=== PATIENT | female | born 1975 | race Two or more races ===

== ENCOUNTER → 2023-08-20 | Outpatient (CLI) | payer BC, SELFPAY ==
--- NOTE | 2023-08-20 09:33 | US_ITS ---
STUDY: ULTRASOUND TRANSVAGINAL CLINICAL: Female, 47 years old. excessive vaginal bleeding TECHNIQUE: Transvaginal COMPARISON: None. FINDINGS: Normal uterine size measuring 9.5 x 4.9 x 4.7 cm in maximal craniocaudal dimension. There are no myometrial masses. Normal endometrial thickness measuring 8 mm. There are no endometrial masses, and there is no fluid in the endometrial cavity. Nabothian cysts of the cervix. Enlarged right ovary, measuring 8.4 x 6.9 x 5.2 cm. The uterus is heterogeneous echotexture with areas of increased echogenicity possibly consistent with a dermoid. Correlation with CT would be useful.. Normal left ovary, measuring 2.6 x 1.9 x 1.3 cm. There are multiple follicles without a dominant cyst. There is no free fluid in the pelvis. Polycystic ovary disease: No. Possible cystic and solid mass in the cul-de-sac and again correlation with CT would be useful. US/Transvaginal Non- IMPRESSION: Suspect right ovarian mass and possible mass in the cul-de-sac. Correlation with CT with oral and intravenous contrast is recommended. Electronically Signed: Jamar Walsh MD at 0:16 EDT ,
== END | disposition home or self-care (01) ==
PROVIDERS: PCP Family Medicine; Referring Provider Registered Nurse; Visit Provider Registered Nurse
DX: N92.0 Excessive and frequent menstruation with regular cycle (principal)
CPT/HCPCS: 76830

== ENCOUNTER → 2023-09-08 | Outpatient (CLI) | payer BC, SELFPAY ==
--- NOTE | 2023-09-04 09:00 | EMB_PTH ---
PATIENT: FREDERICK LEE LOC: [place] U#:[id number] AGE/SX: 47/F ROOM: RE09/08/[address]: Dr. Debra Jacques DO : 1975 BED: DIS: 09/08/2023 SPEC #: [id number] RECD: 09/04/23 16:38 STATUS: GORAN KAIS[facility] #: [id number] ALIS: 09/04/23 09:[address]: Debra Jacques DEPT: SURGICAL PATHOLOGY RECD BY: Connie Avila ENTERED: 09/08/23 09:29 SP TYPE: ENDOM BX/C JEN DR: Dr. Iam Javier MD Tissues: Endometrium, NOS Procedures: Surgery Specimen Level IV HEADER OPERATION: Endometrial biopsy PRE-OP DIAGNOSIS: Menorrhagia TISSUE SUBMITTED: Endometrial lining MICROSCOPIC DIAGNOSIS Endometrium, biopsy: Weakly proliferative inactive endometrium with focal cystic change. Strips of non-superficial endocervix. AM/mr 09/09/2023 MICROSCOPIC DESCRIPTION Slides are reviewed. GROSS DESCRIPTION Received is one container labeled with the patient's name and not further designated. The specimen consists of multiple minute fragments of guerrero tissue measuring in aggregate 0.5 x 0.5 x <0.1cm. The specimen is submitted in its entirety in one cassette. / 09/08/2023 TC:5 CPT:48089
== END | disposition home or self-care (01) ==
LOC: LABSPEC 08:39
PROVIDERS: PCP Family Medicine; Visit Provider Obstetrics & Gynecology
DX: N92.0 Excessive and frequent menstruation with regular cycle (principal)
CPT/HCPCS: 88305

== ENCOUNTER 2023-09-22 11:58 | Day surgery (SDC) | payer BC, SELFPAY ==
[2023-09-17 15:31] LABS: Hematocrit 47.4 % (37-47); Hemoglobin 15.7 g/dL (12.0-15.0); Mean Corp Hgb Conc 33.1 g/dL (32-36); Mean Corpuscular Hgb 32.2 pg (27.0-32.0); Mean Corpuscular Volume 97.3 fL (81-99); Mean Platelet Vol. 10.6 fl (6.2-12.0); Platelet Count 299 K/mm3 (150-450); RBC Distribution Width CV 11.9 % (11.6-14.6); RBC Distribution Width SD 43.1 fl (35.1-43.9); Red Blood Count 4.87 M/mm3 (4.2-5.4)
[2023-09-17 16:17] LABS: Anion Gap 8 (5-15); BUN 17 mg/dL (7-18); BUN/Creat Ratio 14.9 RATIO (10-20); Chloride 105 mmol/L (98-107); Creatinine, Serum 1.14 mg/dL (0.55-1.02); EST Glomerular Filtration Rate 55 mL/min (>60); Est Glom Filt Rate - Afr Amer 66 mL/min (>60); Glucose 106 mg/dL (74-106); Potassium 3.3 mmol/L (3.5-5.1); Sodium Level 139 mmol/L (136-145)
[2023-09-22] VITALS (8 sets, daily range): BP systolic 111–150; BP diastolic 68–97; PULSE 75–100; RESP 16–20; TEMP 35.9–37; O2SAT 97–99; BMI 26.7
--- NOTE | 2023-09-22 12:44 | DCINST_ITS ---
Discharge Instructions Diet Discharge Diet: No restrictions Activity Discharge Activity: Return to Normal Activity, May Not Drive (for two weeks or while taking narcotic pain medications.), May Shower and May Take a Tub Bath (in 7 days) May resume sexual activity in: 1 week Weight Bearing Status: Full weight bearing Dressing / Incision Call your doctor if you observe: Using more than 1 pad per hour, Shortness of breath, Chest pain and Uncontrolled pain Suture Line Care: Avoid Pulling/Pushing and Avoid Pinching/Bending Remove Dressing in: 1 week (if present) Cleanse incision/area with: Soap & Water and Keep Dressing Clean & Dry Follow Up Care Please Follow Up With: Debra Jacques DO When: Call to make an appointment with your doctor for a follow up incision check in 1-2 weeks. Test Results: Test results from this visit will be discussed in further detail at your follow- up appointment, if applicable. Discharge Plan Admission Primary Reason for Your Visit: laparoscopy, dilation and curettage, uterine ablation, removal of ovary Attending Provider: Debra Jacques Primary Care Provider: Iam Javier Instructions Print Language: Eritrean Discharge Orders/Prescriptions Prescriptions: New ibuprofen 800 mg tablet 800 mg PO Q8H PRN (Reason: pain) Qty: 30 0RF oxycodone-acetaminophen [Percocet] 5-325 mg tablet 1 tab PO Q4H PRN (Reason: pain) 7 Days Qty: 15 0RF Rx Instructions: 1-2 tabs q 4 hrs as needed for pain Continued atorvastatin 40 mg tablet 80 mg PO QHS pantoprazole [Protonix] 40 mg tablet,delayed release (DR/EC) 40 mg PO DAILY Aurovela 24 Fe 1 mg-20 mcg (24)/75 mg (4) tablet 1 tab PO DAILY hydrochlorothiazide 12.5 mg tablet 12.5 mg PO DAILY Referrals / Follow Up: Iam Javier MD [Primary Care Provider] - Disposition Disposition (needs filled in before D/C Order can be placed): Home, Self Care
--- NOTE | 2023-09-22 12:44 | PCM.HP.BLA ---
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 Required: No Is patient in pain?: No Allergies clarithromycin (From Biaxin) Allergy (Unknown, Verified 09/04/23 08:20) Rash Medications ?Medication ?Instructions ?Recorded ?Confirmed ?Type atorvastatin 40 mg tablet 40 mg PO DAILY 10/02/20 09/04/23 History bupropion HCl 150 mg 24 hr tablet, 150 mg PO QAM 09/04/23 09/04/23 History extended release norethindrone 1 mg-ethinyl 1 tab PO DAILY 09/04/23 09/04/23 History estradiol 20 mcg (24)-iron 75 mg (4) tablet (Aurovela 24 Fe) pantoprazole 40 mg tablet,delayed 40 mg PO DAILY 09/04/23 09/04/23 History release (Protonix) Post menopausal: No Patient : No : No [facility] Medical History (Updated 09/04/23 @ 09:[address] 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 The scan was done initially due to heavy periods associated with golf ball size blood clots. She seems to respond well to ocps however has been trying to go off ocps, which is a good idea due to her hypertension. She admits to pain with intercourse and some pelvic pain radiating down her legs. The uterus measured 9 cm and overall normal. ROS Const ROS Unobtainable: All systems reviewed & are unremarkable except as noted in H Resp Resp: Reports system reviewed and no additional complaints, except as documented; Denies cough GI GI: Reports as per HPI Psych Psych: Reports system reviewed and no additional complaints, except as documented Exam Const General: cooperative, healthy appearing, comfortable and no acute distress Resp Effort & Inspection: normal respiratory effort General: bimanual renal exam normal bilaterally External Female Exam: normal appearance of the urethra Urethra: normal appearance of the urethra Speculum Exam - Vagina: normal appearance of the vagina Speculum Exam - Cervix: normal appearance of the cervix Bimanual Exam- Adnexa, other: normal Pelvic Support: normal Skin General: no rashes or lesions noted Psych Appearance: grossly normal Speech and Movement: speech and movement normal Office Procedures Endometrial Biopsy Endometrial Biopsy Test: Yes declined Consent Signed: Yes Time out checklist: patient tenaculum used: No dilator used: No Details: Cervix prepped with betadine and pipelle inserted into uterus without complication. Specimen obtained and sent to lab for analysis. All instruments removed from vagina without complications. Excellent hemostasis noted. Coding Level of Care Code Off vis,est,level 5 Diagnoses Dermoid cyst of both ovaries D27.0; D27.1 Heavy menstrual period N92.0 CPT Codes Endometrial Biopsy (28713) Assessment and Plan Assessment and Plan (1) Dermoid cyst of both ovaries: Status: Acute (2) Heavy menstrual period: Status: Acute Comment: will obtain TVUS. if negative, desires to obtain IUD for continued management. Orders: Orders Endometrial Biopsy Today N92.0 - Excessive and frequent menstruation with regular cycle Plan After discussing the patient's diagnosis and treatment plan options, patient wishes to proceed with surgical management. I have discussed with the patient the risks, benefits, and alternatives of the procedure which include but are not limited to risks of anesthesia, bleeding, infection, possible damage to bowel, bladder, or surrounding vasculature which could lead to additional surgery to evaluate any complications. Patient agrees to procedure and wishes to proceed. ACOG/uptodate references given for additional information regarding procedure. The plan is to proceed with a hysteroscopy dilation and curettage, dipti ablation, laparoscopic BS and RSO.
[2023-09-22 12:51] LABS: Internal QC Validated? YES +Cl - CLEAR BKGD; Pregnancy, Urine Negative Negative
[2023-09-22] MEDS: Lactated Ringers 1,000 ML 15 ML IV (13:09)
[2023-09-22] MEDS: Bupivacaine 0.25% 30 ML Vial (13:41)
--- NOTE | 2023-09-22 13:45 | OV_PTH ---
PATIENT: FREDERICK [place]EE [place] [facility] [id number] AGE/SX: 47/F ROOM: RE09/22/[address]: Dr. Debra Jacques DO : 1975 BED: DIS: 09/22/2023 SPEC #: [id number] RECD: 09/22/23 17:28 STATUS: GORAN KAISER #: [id number] ALIS: 09/22/23 13:[address]: Debra Jacques DEPT: SURGICAL PATHOLOGY RECD BY: Connie Avila ENTERED: 09/23/23 07:52 SP TYPE: OVARY OTHR DR: Dr. Iam Javier MD Tissues: A - Right ovary B - Fallopian tube C - Endometrium, NOS Procedures: Surgery Specimen Level II Surgery Specimen Level IV HEADER OPERATION: Hysteroscopy, D&C, Sylvia, laparoscopic bilateral salpingectomy PRE-OP DIAGNOSIS: Dermoid cyst, heavy menstrual period TISSUE SUBMITTED: A- Right ovary and cyst, B- Bilateral tubes, C- Endometrial curettings MICROSCOPIC DIAGNOSIS A. Right ovary and cyst, oophorectomy: Mature cystic teratoma (dermoid cyst). Benign follicular cysts of ovary. B. Right and left fallopian tubes, bilateral salpingectomies: Complete cross-sections of fallopian tubes with benign paratubal cysts. C. Endometrium, curettings: Weakly proliferative endometrium. Benign stromal hyperplasia consistent with exogenous hormonal effect. AM/ 09/24/2023 COMMENT Case has been reviewed in consultation with Dr. Whipple who concurs with the above diagnosis. IDC:[id number] MICROSCOPIC DESCRIPTION Slides are reviewed. GROSS DESCRIPTION A. Received in fixative is one container labeled with the patient's name and designated Right ovary and cyst. The specimen consists of a glistening light guerrero cystic ovary measuring 8.5 x 6.5 x 2.2cm. The external surface is inked and the specimen is serially sectioned to reveal the cystic ovary to contain abundant hair and applesauce like material. The cyst wall ranges in thickness from 0.1 to 0.5cm. No papillary projections or experiences are identified. Focally firm indurated tissue resembling bone and/or calcification is identified. Commissions Analyst sections are submitted in six cassettes after decalcification. B. Received in fixative is one container labeled with the patient's name and designated bilateral fallopian tubes. The specimen consists of two fallopian tubes. One fallopian tube measures in an average length of 4.5 cm and has an average diameter of 0.6 cm. A fimbrial end is identified. The second fallopian tube measures 4.5cm in length and has a diameter of 0.7cm. This fallopian tube contains a cyst near the fimbrial end measuring 0.5cm in greatest dimension and containing clear fluid. No mass lesions are identified. Commissions Analyst sections are submitted in two cassettes as follows: 1 - fallopian tube without cyst, 2 - fallopian tube with cyst. C. Received in fixative is one container labeled with the patient's name and designated Endometrial curettings. The specimen consists of multiple irregular fragments of red-guerrero soft tissue measuring in aggregate 2.5 x 2.0 x 0.2cm. The specimen is totally submitted in one cassette. AM: 09/23/2023 TC:1 CPT: 02889,36264h7, 37235
--- NOTE | 2023-09-22 14:24 | OP.PCM_ITS ---
Problems Associated Problem List Diagnoses (1) Dermoid cyst of right ovary: (2) Heavy menstrual period: Report of Operation Date of Procedure: 08/16/21 Pre-Operative Diagnosis: Right dermoid cyst, menorrhagia, desires permanent sterilization Post-Operative Diagnosis: Right dermoid cyst, menorrhagia, desires permanent sterilization Surgery/Procedure Performed:: laparoscopic bilateral salpingectomy, right oophorectomy, dipti ablation Surgeon: Derba Jacques procurement technician: Zach Mota Type of Anesthesia: General Specimen's removed: endometrial curetting's, bilateral fallopian tubes, right ovary Drains: none Estimated Blood Loss (mL): 10cc Description of Procedure: Patient was taken in the operating room and was placed under general anesthesia was prepped and draped in normal sterile fashion in the dorsal lithotomy position. Bladder was drained of clear urine and SCDs were on preoperatively. Uterus was sounded and a uterine manipulator was placed after dilating. Attention was then paid to the abdominal portion of the procedure and the umbilicus was elevated and injected with Marcaine and after a 5 mm incision was made and a 5 mm trocar was inserted into the abdomen under direct visualization using the laparoscope. Abdomen was insufflated with CO2 gas and a 5 mm optical trocar was placed under direct visualization. A left lower quadrant 5 mm port and a 5 mm trocar suprapubically were placed under direct visualization. Uterus was well visualized and bilateral fallopian tubes identified and a large right ovarian dermoid tumor was identified. The IP ligament was grasped, cauterized and cut, amputating the right ovary off the pelvic side wall and off the uterus. The mass was drained of it's fluid using a suction layer off needle aspirator. The ovary and tubor were placed in a 5 mm endocatch bag. The fascia was spred using a guy forceps device and the skin incision was extended slightly to remove the ovary. A guy clamp was placed over the opening of the incision to make the opening small again in order to hold the CO2 gas internally. The 5 trocar was carefully sipped back into the opening. The bilateral tubes were elevated and transecting across the mesosalpinx and the attachment to the uterine corpus bilaterally the tubes were removed without complication. Excellent hemostasis was noted. Fallopian tubes were removed through the lower port sites without complication. Liver and upper abdomen were visualized notably within normal limits and no other gross abnormalities were seen in the abdomen. All instruments removed from the abdomen after gas was desufflated. Port sites were closed with 3-0 Monocryl Steri's and op sites were applied. Next, attention was turned to the vagina. A weighted speculum was placed into the vagina and the manipulator was removed. The anterior lip of the cervix was grasped with a single toothed tenaculum and the uterus was sounded to 8 cm. The hysteroscope was used to measure the length of the cervix. From here, it was determined that the uterus without the cervix measured 4.5 cm. The Dipti device was inserted into the uterus and passed all safety checks. the device was activated and burned the endometrium for 120 seconds. A second look with the hysteroscope showed adequate charring of the endometrium. All instruments removed from the vagina and patient was awoken and taken recovery in stable condition. Grafts/Implants Used: none Complications none Admit VTE Documentation VTE Mechan Device Prophylaxis: SCD's VTE Pharm Prophylaxis ordered?: No Multi Select Codes Urinary/Genital Urinary/Genital CPT Codes: 17321 Dipti/Novasure, 53923 Hysteroscopy,EMC, Polypectomy and 21828 Laproscopic BS/O
[2023-09-22] MEDS: HYDROcodone Bitartrate/Apap 5/325 Tablet PO (15:21)
--- NOTE | 2023-09-22 16:05 | SUR.PHASEII ---
PATIENT GOT UP TO THE BATHROOM. SHE WAS A LITTLE LIGHT HEADED WHEN SHE GOT BACK AND HAD A COLD SWEAT . VITALS STABLE SHE WANTED TO LAY BACK DOWN FOR A LITTLE BIT.
--- NOTE | 2023-09-22 16:20 | SUR.PHASEII ---
PATIENT CALLED OUT AND FELT BETTER. SHE WAS READY TO GET HER IV OUT AND GO HOME.
== END 2023-09-22 16:44 | disposition home or self-care (01) ==
LOC: SDC 11:59 → AC 11:59
PROVIDERS: Anesthesiology; PCP Family Medicine; Referring Provider Obstetrics & Gynecology; Visit Provider Obstetrics & Gynecology
PROC: 0U5B8ZZ Destruction of Endometrium, Via Natural or Artificial Opening Endoscopic (ICD-10-PCS; CPT 58558; principal; 2023-09-22 13:30)
DX: N85.01 Benign endometrial hyperplasia (principal); D27.1 Benign neoplasm of left ovary; N92.0 Excessive and frequent menstruation with regular cycle; Z30.2 Encounter for sterilization; E78.00 Pure hypercholesterolemia, unspecified; I10 Essential (primary) hypertension; D27.0 Benign neoplasm of right ovary; K21.9 Gastro-esophageal reflux disease without esophagitis; F41.9 Anxiety disorder, unspecified; Z79.899 Other long term (current) drug therapy
CPT/HCPCS: 58661; 58353; 00840; 80048; 81025; 85027; 86850; 86900; 86901; 88302; 88305; J7120; J2405

== ENCOUNTER → 2024-04-14 | Outpatient (CLI) | payer BC, SELFPAY ==
[2024-04-14 17:19] LABS: Vitamin D,25 Hydroxy 28.3 ng/mL
[2024-04-19 13:07] LABS: HPV APTIMA, High Risk Negative (Negative)
== END | disposition home or self-care (01) ==
LOC: BWCLAB 16:41
PROVIDERS: PCP Family Medicine; Referring Provider Obstetrics & Gynecology; Visit Provider Obstetrics & Gynecology
DX: Z13.21 Encounter for screening for nutritional disorder (principal); Z13.29 Encounter for screening for other suspected endocrine disorder; Z12.4 Encounter for screening for malignant neoplasm of cervix
CPT/HCPCS: 36415; 82306; 84443; 87624; 88175; G0145

== ENCOUNTER → 2024-04-18 | Outpatient (CLI) | payer BC, SELFPAY ==
[2024-04-18 16:10] LABS: T4 Free Direct 0.85 ng/dL (0.76-1.46)
== END | disposition home or self-care (01) ==
LOC: MTLAB 13:15
PROVIDERS: PCP Family Medicine; Referring Provider Obstetrics & Gynecology; Visit Provider Obstetrics & Gynecology
DX: R79.89 Other specified abnormal findings of blood chemistry (principal)
CPT/HCPCS: 36415; 84439

== ENCOUNTER → 2024-07-11 | Outpatient (CLI) | payer BC, SELFPAY | END | disposition home or self-care (01) | LOC: MTLAB 11:37 | PROVIDERS: PCP Family Medicine; Referring Provider Obstetrics & Gynecology; Visit Provider Obstetrics & Gynecology | DX: R79.89 Other specified abnormal findings of blood chemistry (principal) | CPT/HCPCS: 36415; 84443 ==